=== PATIENT | female | born 1955 | race Caucasian/White ===

== ENCOUNTER 2017-11-16 07:41 | Day surgery (SDC) | payer MEDICARE, OTHER ==
[2017-11-15 14:22] VITALS: BMI 39.6
[2017-11-16] MEDS ORDERED: MIDAZOLAM HCL 2 MG/2 ML SINGLE DOSE VIAL ONE (09:10)
[2017-11-16] MEDS ORDERED: PROPOFOL 20 ML ONE ×3 (09:10)
[2017-11-16] MEDS ORDERED: LIDOCAINE HCL/PF 2% SDV 5ML VIAL ONE (09:10)
[2017-11-16 09:55] VITALS: TEMP 97.9
[2017-11-16 10:07] VITALS: BP 115/81
[2017-11-16 11:23] VITALS: PULSE 77
--- NOTE | 2017-11-19 15:32 | PATH ---
Surgical Pathology Report Patient Name: MILLIE SUAREZ [facility]. Rec. #: [id number] /Age/Gender: 1955 (Age: 62) / F Account: [id number] Location: U-ENDOSCOPY Taken: 11/16/2017 Received: 11/16/2017 Reported: 11/19/2017 Physicians: Duane Pearce M.D. Specimen(s) Received A: BX 2ND PORTION DUODENUM AND BULB B: BX ANTRUM C: BX SCHATZKI RING D: BX MID ESOPHAGUS Clinical History Dysphagia Postoperative diagnosis: Hiatal hernia, GERD, Schatzki's ring, gastritis Final Diagnosis A. DUODENUM, SECOND PORTION AND BULB, BIOPSY: DUODENAL MUCOSA WITH MILD ACUTE AND CHRONIC DUODENITIS. B. STOMACH, ANTRUM, BIOPSY: GASTRIC ANTRAL MUCOSA WITH MINIMAL CHRONIC INFLAMMATION. IMMUNOHISTOCHEMICAL STAIN FOR H. PYLORI IS NEGATIVE. C. SCHATZI'S RING, BIOPSY: SQUAMOCOLUMNAR MUCOSA WITH MODERATE CHRONIC INFLAMMATION, VASCULAR CONGESTION, AND CHANGES OF MODERATE REFLUX ESOPHAGITIS. NO INTESTINAL METAPLASIA OR DYSPLASIA IDENTIFIED. D. MID ESOPHAGUS, BIOPSY: SQUAMOUS MUCOSA WITH BASAL CELL HYPERPLASIA AND VASCULAR CONGESTION CONSISTENT WITH REFLUX TYPE ESOPHAGITIS. Electronically Signed Nanci Ward M.D. Gross Description A. Received in formalin, labeled "biopsy second portion of duodenum and bulb" are 2 aggarwal, irregular portions of soft tissue measuring 0.3 and 0.4 cm. in greatest dimension. The specimens are submitted in toto in one cassette. B. Received in formalin, labeled "biopsy antrum" is a aggarwal, irregular portion of soft tissue measuring 0.3 cm. in greatest dimension. The specimen is submitted in toto in one cassette. C. Received in formalin, labeled "biopsy Schatzki's ring" are 4 aggarwal, irregular portions of soft tissue ranging from 0.3-0.4 cm. in greatest dimension. The specimens are submitted in toto in one cassette. D. Received in formalin, labeled "biopsy mid esophagus" is a aggarwal, irregular portion of soft tissue measuring 0.3 cm. in greatest dimension. The specimen is submitted in toto in one cassette. No DL/11/16/2017 saudi/11/16/2017
== END 2017-11-16 11:00 | disposition home or self-care (01) ==
LOC: JASU-ENDO 07:41
PROVIDERS: ATTEND Internal Medicine Gastroenterology
PROC: 0DB28ZX Excision of Middle Esophagus, Via Natural or Artificial Opening Endoscopic, Diagnostic (ICD-10-PCS; 2017-11-16)
PROC: 0DB68ZX Excision of Stomach, Via Natural or Artificial Opening Endoscopic, Diagnostic (ICD-10-PCS; 2017-11-16)
PROC: 0D738ZZ Dilation of Lower Esophagus, Via Natural or Artificial Opening Endoscopic (ICD-10-PCS; principal; 2017-11-16 09:00)
DX: K22.2 Esophageal obstruction (principal); K44.9 Diaphragmatic hernia without obstruction or gangrene; K22.4 Dyskinesia of esophagus
CPT/HCPCS: 88305-TC; 88342-TC

== ENCOUNTER 2020-03-22 05:16 | Day surgery (SDC) | payer BC ==
[2020-03-18 15:18] VITALS: BMI 35.9
[2020-03-22 11:16] VITALS: TEMP 97.3
[2020-03-22 12:06] VITALS: BP 146/61; PULSE 71
== END 2020-03-22 11:55 | disposition home or self-care (01) ==
LOC: JASU-ENDO 05:16
PROVIDERS: ATTEND Internal Medicine Gastroenterology
PROC: 0DBM8ZX Excision of Descending Colon, Via Natural or Artificial Opening Endoscopic, Diagnostic (ICD-10-PCS; 2020-03-22)
PROC: 0DBL8ZX Excision of Transverse Colon, Via Natural or Artificial Opening Endoscopic, Diagnostic (ICD-10-PCS; 2020-03-22)
PROC: 0DBK8ZX Excision of Ascending Colon, Via Natural or Artificial Opening Endoscopic, Diagnostic (ICD-10-PCS; principal; 2020-03-22 11:00)
DX: Z12.11 Encounter for screening for malignant neoplasm of colon (principal); K57.30 Diverticulosis of large intestine without perforation or abscess without bleeding; D12.2 Benign neoplasm of ascending colon; D12.4 Benign neoplasm of descending colon; D12.3 Benign neoplasm of transverse colon; K64.8 Other hemorrhoids; Z98.0 Intestinal bypass and anastomosis status; E11.9 Type 2 diabetes mellitus without complications
CPT/HCPCS: 82962; 88305-TC

== ENCOUNTER 2020-05-13 12:10 | Emergency (ER) | payer BC ==
[2020-05-13 12:27] VITALS: TEMP 98.6; BMI 37.2
[2020-05-13] MEDS ORDERED: BAMLANIVIMAB 700 MG in SODIUM CHLORIDE 180 ML IVPB ONE (12:57)
[2020-05-13 14:37] LABS: BASO % 0.4 % (0-2.0); EOS % 0.4 % (0-4.5); HEMATOCRIT 47.9 % (32.4-45.2); HEMOGLOBIN 15.7 GM/dL (10.7-15.3); LYMPH % 28.9 % (8-40); MCH 29.2 pg (25.7-33.7); MCHC 32.8 g/dl (32.0-36.0); MEAN CELL VOLUME 88.9 fl (80-96); MEAN PLT VOLUME 8.7 fl (7.5-11.1); MONO % 9.7 % (3.8-10.2); NEUT % 60.6 % (42.8-82.8); PLATELET COUNT 152 K/MM3 (134-434); RBC 5.38 M/mm3 (3.60-5.2); RDW 14.6 % (11.6-15.6); WHITE BLOOD COUNT 3.3 K/mm3 (4.0-10.0)
[2020-05-13 14:59] LABS: POTASSIUM 4.7 mmol/L (3.5-5.1)
[2020-05-13 15:00] LABS: CALCIUM 8.7 mg/dL (8.5-10.1)
[2020-05-13 15:01] LABS: BLOOD UREA NITROGEN 9.8 mg/dL (7-18)
[2020-05-13 15:04] LABS: CREATININE 0.7 mg/dL (0.55-1.3)
[2020-05-13 17:02] VITALS: BP 127/68; PULSE 89
== END 2020-05-13 17:01 | disposition home or self-care (01) ==
LOC: JCOVINFU 12:10 → JER 12:10 → JCOVINFU 17:01
DX: U07.1 COVID-19 (principal)
CPT/HCPCS: 36415; 80048; 85025; 99284-25; M0239; Q0239

== ENCOUNTER 2023-06-13 04:31 | Day surgery (SDC) | payer BC ==
[2023-06-07 13:55] VITALS: BMI 35.9
[2023-06-13 07:55] VITALS: TEMP 98
[2023-06-13 11:19] VITALS: BP 145/77; PULSE 68; RESP 16
== END 2023-06-13 11:30 | disposition home or self-care (01) ==
LOC: JASU-ENDO 04:31
PROVIDERS: ATTEND Internal Medicine Gastroenterology
PROC: 0DBL8ZX Excision of Transverse Colon, Via Natural or Artificial Opening Endoscopic, Diagnostic (ICD-10-PCS; 2023-06-13)
PROC: 0DBP8ZX Excision of Rectum, Via Natural or Artificial Opening Endoscopic, Diagnostic (ICD-10-PCS; 2023-06-13)
PROC: 0DB98ZX Excision of Duodenum, Via Natural or Artificial Opening Endoscopic, Diagnostic (ICD-10-PCS; 2023-06-13)
PROC: 0DB78ZX Excision of Stomach, Pylorus, Via Natural or Artificial Opening Endoscopic, Diagnostic (ICD-10-PCS; 2023-06-13)
PROC: 0DB68ZX Excision of Stomach, Via Natural or Artificial Opening Endoscopic, Diagnostic (ICD-10-PCS; 2023-06-13)
PROC: 0DB58ZX Excision of Esophagus, Via Natural or Artificial Opening Endoscopic, Diagnostic (ICD-10-PCS; 2023-06-13)
PROC: 0DBK8ZX Excision of Ascending Colon, Via Natural or Artificial Opening Endoscopic, Diagnostic (ICD-10-PCS; principal; 2023-06-13 09:30)
DX: Z12.11 Encounter for screening for malignant neoplasm of colon (principal); D12.2 Benign neoplasm of ascending colon; D12.3 Benign neoplasm of transverse colon; D12.8 Benign neoplasm of rectum; Z98.0 Intestinal bypass and anastomosis status; Z86.010 Personal history of colon polyps; K64.8 Other hemorrhoids; K29.50 Unspecified chronic gastritis without bleeding; K44.9 Diaphragmatic hernia without obstruction or gangrene; K21.00 Gastro-esophageal reflux disease with esophagitis, without bleeding; K22.2 Esophageal obstruction
CPT/HCPCS: 82962